=== PATIENT | male | born 1985 | race Caucasian/White ===

== ENCOUNTER 2018-04-27 17:47 | Inpatient (IN) | payer OTHER ==
[2018-04-27] MEDS ORDERED: NS 1,000 ML IV ONE (18:33)
--- NOTE | 2018-04-27 18:33 | EDPHY ---
H & P Stated Complaint: Ptweight loss x1yr, no food/drink passes x4D Time Seen by Provider: 04/27/18 18:33 HPI/ROS: CHIEF COMPLAINT: Unable to eat or drink without regurgitation, weight loss x1 year HISTORY OF PRESENT ILLNESS: The patient presents to the ED with a 4 day history of inability to pass solid or liquids without regurgitating. The patient has a 1 year history of weight loss. He was evaluated by a physician several months ago in referred to Gastroenterology for consideration of endoscopy. The patient did not follow-up at that point time. The patient reports significant weight loss over the past year. The patient takes no regular medications. The patient denies significant past medical history. REVIEW OF SYSTEMS: A comprehensive 10 point review of systems is otherwise negative aside from elements mentioned in the history of present illness. Source: Patient - Personal History Current Tetanus/Diphtheria Vaccine: Yes - Medical/Surgical History Hx Asthma: No Hx Chronic Respiratory Disease: No Hx Diabetes: No Hx Cardiac Disease: No Hx Renal Disease: No Hx Cirrhosis: No Hx Alcoholism: No Hx HIV/AIDS: No Hx Splenectomy or Spleen Trauma: No Other PMH: none - Social History Smoking Status: Former smoker - Physical Exam Exam: General Appearance: Alert, no acute distress, cachectic male Eyes: Pupils equal and round no pallor or injection ENT, Mouth: Dry mucous membranes Respiratory: There are no retractions, lungs are clear to auscultation Cardiovascular: Regular rate and rhythm Gastrointestinal: Abdomen is soft and nontender, no masses, bowel sounds normal Neurological: 5/5 strength noted all 4 extremities Skin: Warm and dry, no rashes Musculoskeletal: Neck is supple nontender Extremities: symmetrical, full range of motion Constitutional: Initial Vital Signs Temperature (C) 36.4 C 04/27/18 17:53 Heart Rate 78 04/27/18 17:53 Respiratory Rate 18 04/27/18 17:53 Blood Pressure 106/73 04/27/18 17:53 O2 Sat (%) 98 04/27/18 17:53 O2 Delivery Mode Room Air Allergies/Adverse Reactions: No Known Allergies Allergy (Unverified 04/27/18 17:52) Medical Decision Making - Diagnostics Imaging Results: Imaging Impressions Abdomen CT 04/27/18 19:01 Impression: 1. Fat density structure in the midesophagus, which could be related to a polyp or less likely retained food or other etiology. Endoscopy would be useful for further evaluation. 2. Nonobstructing right nephrolithiasis. 3. Mild narrowing of the right subclavian vein. 4. Additional findings as above. Findings discussed with Dr. Jefry Salomon on 04/27/[address] 04/27/18 19:02 Impression: 1. Fat density structure in the midesophagus, which could be related to a polyp or less likely retained food or other etiology. Endoscopy would be useful for further evaluation. 2. Nonobstructing right nephrolithiasis. 3. Mild narrowing of the right subclavian vein. 4. Additional findings as above. Findings discussed with Dr. Jefry Salomon on 04/27/2018 at 1953 hours. ED Course/Re-evaluation: The patient presents to the ED with a confusing story with a 4 day history of symptoms consistent with esophageal impaction or stricture and a 1 year history of significant weight loss. The patient is noted to be quite cachectic. The patient had an IV established. The patient is unable to swallow ice chips or drink fluid without regurgitation. Patient was taken for CT scan of the chest abdomen pelvis which demonstrates what appears to be a polyp like lesion in the esophagus which is nonobstructing. No additional intra-abdominal pathology is noted. Consultation was made with Dr. Velásquez from Gastroenterology. The patient will be admitted to the hospital this evening and undergo endoscopy tomorrow. Consultation is made with Dr. Padron from the hospitalist service. Differential Diagnosis: Differential diagnosis considered includes esophageal impaction, esophageal stricture, intra-abdominal malignancy, dehydration, metabolic derangement, renal failure - Data Points Laboratory Results: Laboratory Results 04/27/18 18:50 04/27/18 18:50 04/27/18 04/27/18 04/27/18 18:56 18:50 18:50 WBC 8.92 10^3/uL 10^3/uL (3.80-9.50) RBC 5.53 10^6/uL 10^6/uL (4.40-6.38) Hgb 17.8 g/dL H g/dL (13.7-17.5) POC Hgb 16.3 gm/dL gm/dL (13.7-17.5) Hct 49.0 % % (40.0-51.0) POC Hct 48 % % (40-51) MCV 88.6 fL fL (81.5-99.8) MCH 32.2 pg pg (27.9-34.1) MCHC 36.3 g/dL g/dL (32.4-36.7) RDW 12.3 % % (11.5-15.2) Plt Count 219 10^3/uL 10^3/uL (150-400) MPV 11.2 fL fL (8.7-11.7) Neut % (Auto) 56.1 % % (39.3-74.2) Lymph % (Auto) 34.0 % % (15.0-45.0) [place] % (Auto) 7.5 % % (4.5-13.0) Eos % (Auto) 1.6 % % (0.6-7.6) Baso % (Auto) 0.7 % % (0.3-1.7) Nucleat RBC Rel Count 0.0 % % (0.0-0.2) Absolute Neuts (auto) 5.01 10^3/uL 10^3/uL (1.70-6.50) Absolute Lymphs (auto) 3.03 10^3/uL H 10^3/uL (1.00-3.00) Absolute Monos (auto) 0.67 10^3/uL 10^3/uL (0.30-0.80) Absolute Eos (auto) 0.14 10^3/uL 10^3/uL (0.03-0.40) Absolute Basos (auto) 0.06 10^3/uL 10^3/uL (0.02-0.10) Absolute Nucleated RBC 0.00 10^3/uL 10^3/uL (0-0.01) Immature Gran % 0.1 % % (0.0-1.1) Immature Gran # 0.01 10^3/uL 10^3/uL (0.00-0.10) POC Sodium 143 mEq/L mEq/L (135-145) Sodium 138 mEq/L mEq/L (135-145) POC Potassium 3.7 mEq/L mEq/L (3.3-5.0) Potassium 4.0 mEq/L mEq/L (3.5-5.2) POC Chloride 105 mEq/L mEq/L (97-110) Chloride 105 mEq/L mEq/L (97-110) Carbon Dioxide 22 mEq/l mEq/l (22-31) Anion Gap 11 mEq/L mEq/L (6-14) POC BUN 23 mg/dL mg/dL (7-23) BUN 24 mg/dL H mg/dL (7-23) Creatinine 1.0 mg/dL mg/dL (0.7-1.3) POC Creatinine 1.0 mg/dL mg/dL (0.7-1.3) Estimated GFR > 60 Glucose 79 mg/dL mg/dL (70-100) POC Glucose 78 mg/dL mg/dL (70-100) Calcium 9.9 mg/dL mg/dL (8.5-10.4) Total Bilirubin 2.3 mg/dL H mg/dL (0.1-1.4) Conjugated Bilirubin 0.3 mg/dL mg/dL (0.0-0.5) Unconjugated Bilirubin 2.0 mg/dL H mg/dL (0.0-1.1) AST 20 IU/L IU/L (17-59) ALT 23 IU/L IU/L (21-72) Alkaline Phosphatase 59 IU/L IU/L (38-126) Total Protein 8.0 g/dL g/dL (6.3-8.2) Albumin 5.1 g/dL H g/dL (3.5-5.0) Lipase 70 IU/L IU/L (23-300) Medications Given: Discontinued Medications Sodium Chloride (Ns) 1,000 mls @ 0 mls/hr IV EDNOW ONE; Wide Open PRN Reason: Protocol Stop: 04/27/18 18:34 Last Admin: 04/27/18 18:50 Dose: 1,000 mls Point of Care Test Results: Chemistry 04/27/18 18:56 POC Sodium 143 mEq/L mEq/L (135-145) POC Potassium 3.7 mEq/L mEq/L (3.3-5.0) POC Chloride 105 mEq/L mEq/L (97-110) POC BUN 23 mg/dL mg/dL (7-23) POC Creatinine 1.0 mg/dL mg/dL (0.7-1.3) POC Glucose 78 mg/dL mg/dL (70-100) ISTAT H&H 04/27/18 18:56 POC Hgb 16.3 gm/dL gm/dL (13.7-17.5) POC Hct 48 % % (40-51) Departure - Departure Disposition: [facility] Inpatient Acute Clinical Impression: Esophageal abnormality, Weight loss Condition: Good Referrals: Anthony Martinez MD [Primary Care Provider] - As per Instructions
[2018-04-27] MEDS ORDERED: IOPAMIDOL (ISOVUE 370) 100 ML BTL IV ONE (19:08)
[2018-04-27 19:09] LABS: PLATELET COUNT 219 10^3/uL (150-400)
[2018-04-27] MEDS ORDERED: ACETAMINOPHEN 325 MG TAB PO PRN (22:58)
[2018-04-27] MEDS ORDERED: ONDANSETRON 4 MG/2 ML VIAL IVP PRN (22:58)
[2018-04-27] MEDS ORDERED: ZOLPIDEM TARTRATE 5 MG TAB PO PRN (22:58)
[2018-04-27] MEDS ORDERED: NS 1,000 ML IV SCH (23:00)
--- NOTE | 2018-04-27 23:04 | PDGENHP ---
History and Physical History and Physical: CC: Dysphagia, regurgitation, weight loss HISTORY: This patient comes in to the ER complaining of at least 1 year of weight loss and dysphagia. He notes feeling that all foods and fluids get stuck mid chest, and he has quite a bit of regurgitation. He has had for a long time difficulty getting anything in. This did NOT start as a solid foods dysphagia w progression, rather started out with equal difficulty with all food and fluids. He has not had much pain. No bleeding. No fevers. He did see Dr Martinez several months ago who recommended EGD but the patient did not follow thru due to "ego issues, I am supposed to be tough and self sufficient". The amount of weight he has lost is unclear but he has had to add 3 new belt holes to his belt to hold up his trousers, and his clothes are still very loose Not much in way of alcohol use. Has been a smoker of 3-5 cigs per day for 3 years. 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 I have reviewed the list and ordered appropriate medicines. PHYSICAL EXAMINATION: Vital Signs: Mildly hypotensive otherwise normal Activity Specialist: Examination: General: alert, oriented, good mentation, relaxed Skin: warm, dry, good color, no rash HEENT: normal Neck: no mass or jvd Resps: relaxed Lungs: clear breath sounds Heart: regular, no murmur Abdomen: soft, nondistended, nontender, +BS, no mass Upper Extremities: normal Lower Extremities: no edema, warm No Bleeding or bruising Neurologic: normal speech/language, normal marriage and family counselor, no focal weakness IV site: looks normal LABORATORY DATA: Evidence of dehydration with a high hemoglobin and BUN, otherwise unremarkable chemistry panels and CBC. The bilirubin is 2.3 but normal liver enzymes RADIOLOGY STUDIES: I reviewed images from CT scans of chest and abdomen tonight. There is a small rounded density in the mid esophagus of density equivalent to fatty tissue. This may well be some food. The radiologist is raising the possibility of a polyp in his report. There are no signs of adenopathy, metastatic disease or other masses or inflammatory changes in the chest or abdomen. ASSESSMENT: * Dysphagia for liquids and solids, > 1yr with no previous diagnositic w/u * weight loss * no bleeding or fever Given that this did not progress from solid to soft to liquid problems, the lack of bleeding or anemia, and the lack of adenopathy or metastatic dz on CT chest/abd, I believe this well may be a muscular issue such as achalasia. However EGD clearly indicated to r/o mass stricture or other mechanical issues. PLANS: * obs status to begin, could need to change to inpt depending on diagnostic results * EGD planned for tomorrow ( [place]) * NPO overnight * willl give some acid reduction for the moment * If nothing found on EGD may need manometer E studies, barium swallow study, emptying studies or otherwise I have reviewed the patient's case in detail with Dr. Efra Salomon I have reviewed the patient's past medical records as part of this assessment, including previous outpatient laboratory studies and clinic records
[2018-04-27] MEDS: MELATONIN 3 MG TAB PO SCH (23:33)
--- NOTE | 2018-04-28 07:11 | PDANEPAE ---
ANE History of Present Illness colonoscopy ANE Past Medical History - Cardiovascular History Hx Hypertension: No Hx Arrhythmias: No Hx Chest Pain: No Hx Coronary Artery / Peripheral Vascular Disease: No Hx CHF / Valvular Disease: No Hx Palpitations: No - Pulmonary History Hx COPD: No Hx Asthma/Reactive Airway Disease: No Hx Recent Upper Respiratory Infection: No Hx Oxygen in Use at Home: No Hx Sleep Apnea: No - Endocrine History Hx Diabetes: No Hypothyroid: No Hyperthyroid: No Obesity: no - Renal History Hx Renal Disorders: No - Liver History Hx Hepatic Disorders: No - Neurological & Psychiatric Hx Hx Neurological and Psychiatric Disorders: No - Cancer History Hx Cancer: No - Congenital Disorder History Hx Congenital Disorders: No - Chronic Pain History Chronic Pain: No - Surgical History Prior Surgeries: none ANE Review of Systems Review of Systems: - Exercise capacity METS (RN): 4 METS ANE Patient History - Allergies Allergies/Adverse Reactions: hay Allergy (Uncoded 04/28/18 06:57) - Home Medications Home Medications: Cyanocobalamin (Vitamin B-12) [Vitamin B-12] 1,000 mcg PO DAILY 04/27/18 [Last Taken 04/26/18] - Smoking Hx Smoking Status: Former smoker (stopped 7 months ago) - Alcohol Use Alcohol Use: None - Family Anes Hx Family Anes Hx: none ANE Labs/Vital Signs - Labs Result Diagrams: 04/27/18 18:50 04/27/18 18:50 - Vital Signs Blood Pressure: 106/59 Heart Rate: 59 Respiratory Rate: 16 O2 Sat (%): 91 Height: 198.12 cm Weight: 69.853 kg ANE Physical Exam - Airway Neck exam: FROM Mouth exam: normal dental/mouth exam - Pulmonary Pulmonary: clear to auscultation - Cardiovascular Cardiovascular: regular rate and rhythym - ASA Status ASA Status: II ANE Anesthesia Plan Anesthesia Plan: GA with mask
[2018-04-28] MEDS ORDERED: LR 1,000 ML IV ONE (07:59)
[2018-04-28] MEDS ORDERED: MIDAZOLAM 2 MG/2 ML VIAL IVP ONE (08:51)
[2018-04-28] MEDS ORDERED: fentaNYL 100 MCG/2 ML INJ ONE (08:53)
[2018-04-28] MEDS ORDERED: PROPOFOL 200 MG/20 ML VIAL ONE ×2 (08:54→08:55)
[2018-04-28] MEDS ORDERED: fentaNYL 100 MCG/2 ML INJ IVP PRN (09:15)
[2018-04-28] MEDS ORDERED: ONDANSETRON 4 MG/2 ML VIAL IVP PRN (09:15)
[2018-04-28] MEDS ORDERED: NALOXONE HCL 0.4 MG/ML INJ IVP PRN (09:15)
--- NOTE | 2018-04-28 09:29 | POSTANESTH ---
Post Anesthetic Evaluation Cardiovascular Status: Normal, Stable Respiratory Status: Normal, Stable Level of Consciousness/Mental Status: Can Participate in Eval Pain Control: Adequate, Prn Tx Ordered Nausea/Vomiting Control: Adequate, Prn Tx Ordered Complications Possibly Related to Anesthesia: None Noted
[2018-04-28] MEDS ORDERED: ONDANSETRON 4 MG/2 ML VIAL ONE (09:47)
[2018-04-28] MEDS: MULTIVITAMINS 1 EACH TAB PO SCH (10:17)
--- NOTE | 2018-04-28 10:21 | GIREPORT ---
[facility] - Endoscopy Department Patient Name: Clint Shields Procedure Date: 04/28/2018 9:01 AM Patient Type: Inpatient Attending MD/ ER Physician: Jesus Velásquez MD Procedure: Upper GI endoscopy Indications: Dysphagia, Weight loss Patient Profile: 33 year old male presents for evaluation of dysphagia/weight loss. Providers: Jesus Velásquez MD Medicines: Monitored Anesthesia Care Complications: No immediate complications. Estimated blood loss: Minimal. Description of Procedure: After obtaining informed consent, the endoscope was passed under direct vision. Throughout the procedure, the patient's blood pressure, pulse, and oxygen saturations were monitored continuously. The Endoscope was intro duced through the mouth, and advanced to the second part of duodenum. After obtaining informed consent, the endoscope was passed under direct visio n. Throughout the procedure, the patient's blood pressure, pulse, and oxyg en saturations were monitored continuously.The upper GI endoscopy was accomplished without difficulty. The patient tolerated the procedure we ll. Findings: One food bolus was found in the middle third of the esophagus. This allan d was gently and easily pushed into the stomach. Several biopsies were obtain ed in the middle third of the esophagus with cold forceps for histology. A TTS dilator was passed through the scope. Dilation with a 15-16.5-18 mm balloon dilator was performed to 18 mm in the distal esophagus. Patchy mildly erythematous mucosa was found in the gastric body and in the gastric antrum. The examined duodenum was normal. Estimated Blood Loss: Estimated blood loss was minimal. Post Op Diagnosis: - Food was found in the esophagus. - Erythematous mucosa in the gastric body and antrum. - Normal examined duodenum. - Several biopsies were obtained in the middle third of the esophagus. - Dilation performed in the distal esophagus. - Etiology? Unsure. The [place] did not appear tight. The esophagus was not dilated. Symptoms more consistent with motility disorder (dysphagia to liquids and solids)? Restart diet this afternoon. Recommendation: - Return patient to [facility] for ongoing care. - Clear liquid diet. - Use a proton pump inhibitor IV BID. - Await pathology results. - Recommend outpatient manometry examination (in [place]) - Thank you for allowing em to participate in the care of your patient, Attending Participation: I personally performed the entire procedure. Jesus Velásquez MD Jesus Velásquez MD 04/28/2018 10:20:59 AM This report has been signed electronicallyJesus Velásquez MD Number of Addenda: 0 Note Initiated On: 04/28/2018 9:01 AM [email or web address]
--- NOTE | 2018-04-28 11:29 | GCON ---
DATE OF CONSULTATION: 04/28/2018 REFERRING PHYSICIAN: Garrett Padron MD REASON FOR CONSULTATION: Dysphagia. CHIEF COMPLAINT: Dysphagia. HISTORY OF PRESENT ILLNESS: The patient is a 33-year-old male with no significant past medical history, who presents to [facility] with complaints of inability to tolerate oral and liquid intake. The patient has had complaints over the last year of solid and liquids getting stuck in his esophagus, He states that he has to regurgitate them back up. In December of 2017, he saw his primary care physician, Dr. Martinez, and upper endoscopy was recommended, but he never followed through. He states that for the last 3 days he has had progressive symptoms and has not been able to tolerate any liquid or oral intake. He believes his symptoms are exacerbated by cold fluids. He denies any alleviating factors. He has lost at least 20-30 pounds in the last year. He denies any significant odynophagia, abdominal discomfort, or heartburn. I am being asked by Dr. Padron to evaluate the patient in consultation regarding his dysphagia. PAST MEDICAL HISTORY: None. PAST SURGICAL HISTORY: None. FAMILY HISTORY: No history of esophageal disorders. ALLERGIES: NKDA. MEDICATIONS: Vitamins SOCIAL HISTORY: Stopped smoking. Social alcohol. REVIEW OF SYSTEMS: A 12 point comprehensive review of systems was asked. Pertinent positives and negatives per HPI. PHYSICAL EXAM: VITAL SIGNS: Blood pressure 121/71, heart rate 59, respirations 16, temperature 36. GENERAL: Awake, alert, and oriented x3. HEENT: Anicteric. Moist mucosa. NECK: No JVD. CARDIOVASCULAR: Regular rate and rhythm, positive S1 , S2. No murmurs or gallops appreciated. LUNGS: Clear to auscultation bilaterally. No wheezes, rales or rhonchi. ABDOMEN: Soft, nontender, nondistended. Positive bowel sounds. No guarding. No rebound. EXTREMITIES: No clubbing, cyanosis, edema. NEUROLOGICAL: Cranial nerves 2 through 12 are grossly intact. PSYCH: Normal affect. SKIN: No rash. MUSCULOSKELETAL: No obvious joint effusions. BLOOD WORK: Hemoglobin 17.8, sodium 143, potassium 3.7, chloride 105, bicarb 22 , BUN 24, creatinine 1.0, AST 20, ALT 23, lipase 70. CT scan of the chest/ abdomen: Fat density stricture midesophagus, suspect retained food versus other? ASSESSMENT AND PLAN: Dysphagia to liquids and solids. Exacerbated by cold fluids. No significant heartburn symptoms. At this time, recommend to proceed with upper endoscopy to delineate the cause of his symptoms. The risks, benefits , and alternatives of the procedure were discussed in great detail with the patient. The risk of infection, bleeding, perforation, and sedation were discussed. All questions answered, and informed consent was obtained. Thank you very much for this consultation. /[id number]/MODL MTDD
--- NOTE | 2018-04-28 12:39 | ASMTCMCOM ---
CM Note CM Note Notes: Patient plan of care reviewed in rounds. 33 year old male admitted via ED yesterday for c/o dysphagia and weight loss over the past year. Upper GI per gastroenterology. Biopsies taken, food in esophagus Recommendations are to follow up in [place]. No other needs identified at this time. Plan: Dc to home with outpatient follow up. Date Signed: 04/28/2018 12:39 PM Electronically Signed By:Jessica Trejo RN
[2018-04-28] MEDS: PANTOPRAZOLE SODIUM 40 MG VIAL IVP SCH (18:07)
--- NOTE | 2018-04-28 18:18 | HOSPPROG ---
Hospitalist Progress Note Assessment/Plan: The patient is a 33-year-old male with PMH dysphagia x 1 yr who was admitted for inability to keep food or drink down for 4-5 days. This problem had progressively been worsening over the last year. ASSESSMENT/PLAN: Severe dysphagia, chronic - suspect esophageal dysmotility Esophagitis Gastritis Severe protein-calorie malnutrition Underweight BMI -s/p EGD which dislodged some food. FU biopsies. -Needs outpatient esophageal manometry test. -Pt still having trouble keeping down food/water. He hasn't started PPI BID yet. Continue IVF. -Dietary consult to help pt get calories/nutrition. -Has appt w/ [facility] this Friday. Told him to keep appt to order manometry and FU on biopsy results. Neck pain, 2/2 multiple injuries B/l arm/leg numbness/tingling, acute -check vit B12, folate, TSH, electrolytes. -Check neck XR. VTE prophylaxis: ambulatory. Code Status: full. Status: changing to inpatient for continued inability to eat/drink, dehydration. Disposition: medsurg in the next 1-2 days. ____ SUBJECTIVE: Today pt had new onset of numbness in bilat UE/LE after his procedure and after blood pressure cuff tightened around his arm. It continued to last all day. He is still unable to consume anything following EGD. OBJECTIVE: Physical Exam: General: The patient is a cachectic appearing male who is alert and in no acute distress. HEENT: normocephalic, extraocular movements intact, conjunctivae clear, no lesions on face. Nares and oral mucosa pink and moist. Neck: trachea midline, no visible masses, no external lesions. CV: +S1/S2, RRR, no MRG. Resp: unlabored, CTAB no RRW. Abd: soft and nondistended. Nontender throughout. Musculoskeletal: Normal strength. + muscle wasting temporal area. Neuro: cranial nerves II - XII grossly intact. Intact gross motor and sensory function. Psych: appropriate mood/affect. Skin: no pallor. Labs/Imaging/Other Tests: Personally reviewed/interpreted. CT Chest w contrast: 1. Fat density structure in the midesophagus, which could be related to a polyp or less likely retained food or other etiology. Endoscopy would be useful for further evaluation. 2. Nonobstructing right nephrolithiasis. 3. Mild narrowing of the right subclavian vein. 4. Additional findings as above. Objective: Vital Signs Temp Pulse Resp BP Pulse Ox 36.7 C 69 16 91/53 L 91 L 04/28/18 16:00 04/28/18 16:00 04/28/18 16:00 04/28/18 16:00 04/28/18 16:00 04/27/18 04/28/18 04/29/18 05:59 05:59 05:59 Intake Total 1866 1140 Output Total 300 175 Balance 1566 965 - Time Spent With Patient Time Spent with Patient: greater than 35 minutes Time Spent with Patient: Greater than 35 minutes spent on this patients care, greater than 50% of time spent counseling, educating, and coordinating care regarding the above mentioned plan. ICD10 Worksheet Patient Problems: Problems Problem Status Onset Esophageal abnormality Acute Weight loss Acute
[2018-04-28] MEDS: D5W 1/2 NS W/ 20 KCl/L 1,000 ML IV SCH (18:54)
[2018-04-28] MEDS: MELATONIN 3 MG TAB PO SCH (21:44)
--- NOTE | 2018-04-28 21:58 | PDMN ---
Medical Necessity Medical necessity: Change to inpt as of 04/28/18 @ 18:02 per MD order and [facility] [place] [facility], Esophageal Disease. 33 y/o w/PMH dysphagia x 1 yr admitted w/severe dysphagia/esophagitis/underweight BMI, s/p EGD today, biopsy results pending. Upgraded to inpt for persistent inability to eat/drink/dehydration requiring cont IVF and IV PPI, also new onset numbness in bilat upper extremeties post EGD procedure. Est LOS>2MN for ongoing eval/management of above.
[2018-04-28] MEDS ORDERED: POTASSIUM CL 20 MEQ TAB PO ONE (22:27)
[2018-04-29] MEDS: D5W 1/2 NS W/ 20 KCl/L 1,000 ML IV SCH (06:16)
[2018-04-29] MEDS: MULTIVITAMINS 1 EACH TAB PO SCH (08:12)
[2018-04-29] MEDS: PANTOPRAZOLE SODIUM 40 MG VIAL IVP SCH (08:12)
--- NOTE | 2018-04-29 08:16 | SOAPPROG ---
[facility] Progress Note Assessment/Plan: Assessment: Plan: 04/29/18 08:04 A/P 1. Dysphagia- with weight loss. S/p EGD with biopsies and empiric dilation. Much improved on PPI therapy and empiric dilation. Recommend PPI BID on discharge. No cold liquids/food. Antireflux diet. Etiology? Esophageal dysmotility versus other? Needs outpatient manometry tests. Has outpatient visit in our group for this Friday. Subjective: cc: Follow up dysphagia Doing better. Tolerating diet. Objective: Vital Signs Temp Pulse Resp BP Pulse Ox 36.4 C 74 16 103/62 98 04/29/18 05:26 04/29/18 07:49 04/29/18 07:49 04/29/18 07:49 04/29/18 07:49 Laboratory Results 04/29/18 05:10 04/28/18 04/29/18 04/30/18 05:59 05:59 05:59 Intake Total 1606 1606 Output Total 500 Balance 1106 1606 Physical Exam - Physical Exam General Appearance: alert, no apparent distress EENT: No scleral icterus (R), No scleral icterus (L) Respiratory: lungs clear, normal breath sounds, No decreased breath sounds, No crackles, No rales, No rhonchi Cardiac/Chest: regular rate, rhythm Abdomen: non-tender, soft, No distended, No guarding, No rebound, No hernia Skin: normal color, warm/dry Neuro/Psych: alert, normal mood/affect, oriented x 3 ICD10 Worksheet Patient Problems: Problems Problem Status Onset Esophageal abnormality Acute Weight loss Acute
[2018-04-29 15:10] VITALS: BP 99/63
--- NOTE | 2018-04-29 16:12 | PDDCSUM ---
Discharge Summary Discharge Summary: The patient is a 33-year-old male admitted with dysphagia and weight loss. He underwent endoscopy with dilatation and biopsies. He has been started on a PPI with improvement. Etiology is unclear. He will f/u with GI of the [facility]. Manometry testing will need to be scheduled per GI. He will also f/u with his PCP next week DDX: Severe dysphagia, chronic Esophagitis Gastritis Severe protein-calorie malnutrition Underweight BMI Neck pain, 2/2 multiple injuries B/l arm/leg numbness/tingling, acute Physical Exam: General: The patient is a cachectic appearing male who is alert and in no acute distress. HEENT: normocephalic, extraocular movements intact, conjunctivae clear, no lesions on face. Nares and oral mucosa pink and moist. Neck: trachea midline, no visible masses, no external lesions. CV: +S1/S2, RRR, no MRG. Resp: unlabored, CTAB no RRW. Abd: soft and nondistended. Nontender throughout. Musculoskeletal: Normal strength. + muscle wasting temporal area. Neuro: cranial nerves II - XII grossly intact. Intact gross motor and sensory function. Psych: appropriate mood/affect. Skin: no pallor. Labs/Imaging/Other Tests: Personally reviewed/interpreted. CT Chest w contrast: 1. Fat density structure in the midesophagus, which could be related to a polyp or less likely retained food or other etiology. Endoscopy would be useful for further evaluation. 2. Nonobstructing right nephrolithiasis. 3. Mild narrowing of the right subclavian vein. 4. Additional findings as above. Meds: see med rec F/u: per above total time spent on d/c is 45 mins
--- NOTE | 2018-04-29 16:17 | ASMTLACE ---
PAUL Length of stay for Answers: 1 day current admission # of Emergency department Answers: 1-2 visits in the last 6 months Score: 2 Date Signed: 04/29/2018 04:12 PM Electronically Signed By:Jessica Trejo RN
--- NOTE | 2018-04-29 16:18 | ASMTDCNOTE ---
Case Management Discharge Discharge Order Complete? Answers: Yes Patient to Obtain Answers: Independently Medications Transportation Arranged Answers: Family/Friends Family Notified Answers: Yes Discharge Comments Notes: Medically cleared for discharge. No needs. Date Signed: 04/29/2018 04:14 PM Electronically Signed By:Jessica Trejo RN
== END 2018-04-29 17:30 | disposition home or self-care (01) | DRG 391 ==
LOC: F1N 22:00 → OBSVTOIN 04-28 18:02
PROVIDERS: ADMIT Internal Medicine; ATTEND Internal Medicine
DX: R13.19 Other dysphagia (principal); E43 Unspecified severe protein-calorie malnutrition; K20.9 Esophagitis, unspecified; K29.50 Unspecified chronic gastritis without bleeding; E86.9 Volume depletion, unspecified; M54.2 Cervicalgia; N20.0 Calculus of kidney; Z72.0 Tobacco use
CPT/HCPCS: 82435-PO; 82565-PO; 82607-90; 82947-PO; 84132-PO; 84295-PO; 84520-PO; 85014-ER; C1726; G0378; J2250; J2405; J2704; J3010; Q9967